=== PATIENT | female | born 1980 | race Caucasian/White ===

== ENCOUNTER 2019-01-07 08:17 | Emergency (ER) | payer OTHER ==
[~2019-01-07] VITALS: Ht 170.2 cm; Wt 67.6 kg
[2019-01-07 09:03] LABS: ABSOLUTE LYMPHOCYTES 1.1 thou/uL (0.8-5.3); ABSOLUTE MONOCYTES 0.7 thou/uL (0.0-1.2); ABSOLUTE NEUTROPHILS 9.8 thou/uL (1.6-8.1); BASOPHILS 0.2 %; EOSINOPHILS 0.4 %; HEMATOCRIT 43.7 % (37.0-47.0); HEMOGLOBIN 14.7 gm/dL (12.0-15.0); LYMPHOCYTES 9.2 %; MCH 30.5 pg (26.0-34.0); MCHC 33.6 g/dL (28.0-37.0); MCV 90.7 fL (80.0-100.0); MPV 9.7 fl. (7.2-11.1); NUCLEATED RBCS 0 /100WBC; PLATELET COUNT* 184 thou/uL (150-400); POLYS 84.2 %; RBC 4.82 mil/uL (4.20-5.00); RDW-CV 11.9 % (10.5-14.5); WBC 11.6 thou/uL (4.0-11.0)
[2019-01-07 09:11] LABS: APTT 31.6 Seconds (25.0-31.3); PROTIME 10.6 Seconds (9.20-11.50)
[2019-01-07 09:12] LABS: ANION GAP 11 mmol/L (7-16); BUN 9 mg/dL (7-18); CALCIUM 8.4 mg/dL (8.5-10.1); CHLORIDE 103 mmol/L (98-107); CO2 24 mmol/L (21-32); CREATININE 0.7 mg/dL (0.6-1.3); GLUCOSE 92 mg/dL (70-99); POTASSIUM 3.9 mmol/L (3.5-5.1); SODIUM 138 mmol/L (136-145)
[2019-01-07 09:23] LABS: ALBUMIN 3.6 g/dL (3.4-5.0); ALKALINE PHOSPHATASE 77 U/L (46-116); NT-PRO BRAIN NAT PEPTIDE 73 pg/mL (<300); SGOT 13 U/L (15-37); SGPT 18 U/L (30-65); TOTAL BILIRUBIN 0.6 mg/dL (<0.1-1.0); TOTAL PROTEIN 7.2 g/dL (6.4-8.2); TROPONIN-I LEVEL <0.06 ng/mL (<0.06)
[2019-01-07] MEDS ORDERED: ZOFRAN ODT4 MG SUBLING (09:48)
[2019-01-07] MEDS ORDERED: KEFLEX500 M1 PO (10:00)
[2019-01-07 10:05] VITALS: BP 119/71
--- NOTE | 2019-01-08 17:55 | EKG ---
[place] [address] ELECTROCARDIOGRAM REPORT Name: ANALILIA BOBAH Brendan Room: [facility]#: [id number] Admission: 01/07/19 Attend Phys: Discharge: 01/07/19 Date of : 78 Report #: [id number] THIS REPORT FOR: //name// [facility] ED Test Date: 2019-01-07 Test Time: 09:00:25 Pat Name: KELSEY BOB Department: Room: Gender: F [employer]: : 1980 Requested By: Jerry Pina Order Number: [id number] MD: Efrain Thomas Measurements Intervals [place] Rate: 58 P: 70 ID: [id number] QRS: 80 QRSD: 132 T: 34 QT: 473 QTc: 465 Interpretive Statements Sinus rhythm Nonspecific intraventricular conduction delay No previous ECG available for comparison Electronically Signed On 01-08-2019 17:55:19 CDT by Efrain Thomas [email or web address] <ELECTRONICALLY SIGNED> By: Edil Thomas MD, [facility] 01/08/19 1755 9 9 Edil Thomas MD, FACC /EPI
== END 2019-01-07 10:05 | disposition home or self-care (01) ==
LOC: M.ERS 08:17
PROVIDERS: Family Medicine
DX: R53.1 Weakness (principal); R11.2 Nausea with vomiting, unspecified; R42 Dizziness and giddiness; Z88.0 Allergy status to penicillin